=== PATIENT | female | born 1960 | race Caucasian/White ===

== ENCOUNTER 2017-06-12 13:31 | Day surgery (SDC) | payer OTHER ==
[~2017-06-12] VITALS: Ht 162.6 cm; Wt 61.0 kg
[~2017-06-12 13:31] MED LIST: ASPI-535 PO; ATOR10TA65 PO; CALC0.2511 PO; CHOL10009 PO; FOLI-49 PO; GABA-526 PO; INSU100C; INSU100I17 SQ; LANT3I SC; LIPA1CAP6 PO; LISI10TA2 PO; LORA-441; LORA1TAB PO; MAGN400T38 PO; METO100T2 PO; MIRT30TA5 PO; OLAN2.5T16; PANT40TA4 PO; POLY17PO6 PO; QUET200T PO; THIA50TA2 PO; [UNRECOGNIZED DRUG - OTHER]
[2017-06-12] MEDS ORDERED: THIA100T56 PO (14:19)
[2017-06-12] MEDS ORDERED: METO10TA96 PO (14:19)
[2017-06-12] MEDS ORDERED: CHOL10009 PO (14:20)
[2017-06-12] MEDS ORDERED: OMEP20CA16 PO (14:20)
[2017-06-12] MEDS ORDERED: LIPA1CAP45 PO (14:21)
[2017-06-12] MEDS ORDERED: INSU200I SQ (14:23)
[2017-06-12] MEDS ORDERED: INSULIN GLARGINE SQ (14:24)
[2017-06-12 15:04] VITALS: Ht 162.6 cm; Wt 61.0 kg
[2017-06-12 15:05] VITALS: BP 123/75; PULSE 113; RESP 18
[2017-06-12] MEDS ORDERED: IOHEXOL 300MG/ML 30 ML BTL ONE (17:48)
[2017-06-12] MEDS ORDERED: INDOMETHACIN 50 MG SUPP PR ONE ×2 (17:49→19:00)
[2017-06-12] MEDS ORDERED: ROCURONIUM 50 MG INJ ONE (17:55)
[2017-06-12] MEDS ORDERED: PROPOFOL 20 ML ONE (17:55)
[2017-06-12] MEDS ORDERED: LIDOCAINE 2% (SDV) 5 ML INJ ONE (17:55)
[2017-06-12] MEDS ORDERED: SUCCINYLCHOLINE CHLORIDE 100 MG/5 ML SYG IV ONE (17:55)
[2017-06-12] MEDS ORDERED: ONDANSETRON 4 MG INJ ONE (17:56)
[2017-06-12] MEDS ORDERED: METOCLOPRAMIDE 10 MG INJ ONE (17:56)
[2017-06-12] MEDS ORDERED: OXYCODONE/ACETAMINOPHEN (5/325) TAB PO PRN ×2 (18:00)
[2017-06-12] MEDS ORDERED: METOCLOPRAMIDE 10 MG INJ IV PRN (18:00)
[2017-06-12] MEDS ORDERED: FENTAnyl 50 MCG/ML VIAL IV PRN ×3 (18:00)
[2017-06-12] MEDS ORDERED: morphine (1 MG/ML) 10ML SYRINGE IV PRN ×3 (18:00)
[2017-06-12] MEDS ORDERED: MEPERIDINE 25 MG INJ IV PRN (18:00)
[2017-06-12] MEDS ORDERED: ONDANSETRON 4 MG INJ IV PRN (18:00)
[2017-06-12] MEDS ORDERED: MIDAZOLAM 1 MG/ML 2 ML INJ IV PRN (18:00)
[2017-06-12] MEDS ORDERED: DIPHENHYDRAMINE 50 MG INJ IV PRN (18:00)
[2017-06-12] MEDS ORDERED: IOHEXOL 300MG/ML 150 ML BTL INJ ONE (18:15)
[2017-06-12 18:54] VITALS: BP 142/86; PULSE 102; RESP 17
[2017-06-12 18:59] VITALS: BP 137/76; PULSE 96; RESP 17
[2017-06-12] MEDS ORDERED: INDOMETHACIN 50 MG SUPP PR SCH (21:00)
--- NOTE | 2017-06-13 08:19 | RADRPT ---
PROCEDURE: Intraoperative imaging for ERCP with fluoroscopy. CLINICAL INDICATION: Right upper quadrant pain. Intraoperative. TECHNIQUE: 5 images of the right upper quadrant of the abdomen were obtained in the operating room with an image intensifier. No radiologist was in attendance. 2.2 minutes of fluoroscopy time was used. COMPARISON: ERCP dated 10/16/2016. FINDINGS: Images demonstrate the endoscope in position. Contrast was injected into the common bile duct. The common bile duct is markedly dilated. Filling defects are present consistent with stones or air bu bbles. A balloon sweep was made and a stent was placed in the common bile duct. IMPRESSION: 1. ERCP as described above. RPTAT: QQ .Homero Ocampo MD, Date Time Electronically viewed and signed by .Homero Ocampo MD, on 06/13/2017 08:19 .R/
--- NOTE | 2017-06-17 04:46 | GILP ---
DATE OF PROCEDURE: 06/12/2017 PROCEDURE: ENDOSCOPIC RETROGRADE CHOLANGIOPANCREATOGRAPHY WITH STENT REMOVAL. ENDOSCOPIC RETROGRADE CHOLANGIOPANCREATITIS WITH METAL STENT (WALLSTENT) HISTORY AND INDICATIONS: PREMEDICATION: General anesthesia by anesthesiologist. INSTRUMENT USED: Olympus side viewing panendoscope. TECHNIQUE: After informed consent, with the patient/relatives understanding the procedure, its indications, potential risks and complications, including but not limited to: allergic reaction, bleeding, perforation or infection, and after all pertinent questions were answered to the patients satisfaction, the patient/relatives signed witnessed informed consent. Following this, premedication was administered slowly IV push under careful cardiovascular and respiratory monitoring with pulse oximetry, automatic blood pressure and surveillance monitor. Once the sedative effect was achieved the patient was place in the prone position in the radiology special procedures suite; the side viewing panendoscope was introduced and advanced under visual control. Careful examination of the upper gastrointestinal tract, both on insertion as well as withdrawal of the instrument disclosed the following findings: ESOPHAGUS: The mucosa of the entire esophagus appears within normal limits. There is no evidence of esophagitis, varices, neoplasm or stricture. No Hiatal Hernia identified. STOMACH: Upon entrance to the stomach air was insufflated, the gastric belle distended normally. The mucosa of the fundus, body and antrum of the stomach was carefully examined both head-on and on retroflexion, and shows no abnormalities. There is no evidence of gastritis, ulcers or neoplasm. PYLORUS: The pylorus appears patent and within normal limits, with no evidence of gastric outlet obstruction. DUODENUM: The duodenal mucosa was carefully examined in the duodenal bulb as well as the second portion of the duodenum and appears unremarkable with no evidence of duodenitis, ulcer or neoplasm. AMPULLA OF VATER: The ampulla of Vater was identified. A stent was seen exiting the ampulla and appears occluded. The stent was secured with a polypectomy snare and then retrieved. Following this, a balloon catheter was used to obtain a balloon cholangiogram that shows significant dilatation of the biliary tree. No intraductal pathology appears to be present, although insertion to the cystic duct which is patent with faint visualization of the gallbladder is noted. The balloon was retrieved and we observed the area, and as described on previous examinations the emptying is poor or non-existent after a period of observation. At this point we elected to place a fully covered 10 x 60 Wallstent which was deployed without difficult with significant improvement in drainage. CANNULATION: At this point cannulation was accomplished with the following fluoroscopic findings: PANCREATOGRAM: CHOLANGIOGRAM: The instrument was then withdrawn, the patient tolerated the procedure well and was transfer out of the endoscopy suite awake, and in good condition to continue recovery under observation. IMPRESSION: 1. Post removal of occluded stent. 2. Dilated biliary tree with poor emptying. 3. Post placement of 10 x 60 mm fully covered Wallstent with improved drainage. PLAN: The patient will be observed and discharged if stable. She should be considered for laparoscopic cholecystectomy as soon as possible as her symptoms may be related to cholelithiasis and possible subacute cholecystitis. Dictated By: Karlee Schafer MD /crystal/piedad /Document#: [id number]
== END 2017-06-12 20:39 | disposition home or self-care (01) ==
LOC: SDS 13:31 → EDBD 13:31 → SDS 13:40
PROVIDERS: ATTEND Internal Medicine Gastroenterology
DX: R10.13 Epigastric pain (principal); E11.9 Type 2 diabetes mellitus without complications; E78.5 Hyperlipidemia, unspecified; F20.9 Schizophrenia, unspecified; I12.9 Hypertensive chronic kidney disease with stage 1 through stage 4 chronic kidney disease, or unspecified chronic kidney disease; N18.3 Chronic kidney disease, stage 3 (moderate)
CPT/HCPCS: 43275; 74330; 82962; C2617; J2175; J2405; J2765; J3010; J7999; Q9967; Z7512; Z7610